=== PATIENT | male | born 1990 | race Caucasian/White ===

== ENCOUNTER 2017-01-15 21:39 | Emergency (ER) | payer OTHER, BC ==
[2017-01-15 21:44] VITALS: BP 141/88; PULSE 84; RESP 18; TEMP 97.9; O2SAT 97
--- NOTE | 2017-01-15 21:52 | EDPHY ---
H & P Time Seen by Provider: 01/15/17 21:45 HPI/ROS: CHIEF COMPLAINT: Laceration left Achilles region HISTORY OF PRESENT ILLNESS: 26-year-old male with up-to-date tetanus sustained accidental laceration to left Achilles region when he accidentally kicked a metal object. No paresthesia. No sensory or motor deficit. No foot drop. PHYSICAL EXAM (Prior to examination, patient consented to physical exam, hands were washed and my usual and customary physical exam procedures followed) 1) GENERAL: Well-developed, well-nourished, alert and oriented. Appears to be in no acute distress. 2) HEAD: Normocephalic 3) HEENT: Pupils equal, round, reactive to light bilaterally. 4) LUNGS: Breathing comfortably. 5) MUSCULOSKELETAL: proximal tibia and fibula nontender .negative Marie test , compartments soft 6) SKIN: left Achilles region transverse 2.5 cm laceration 7) VASCULAR: DP,PT pulses and cap refill present and brisk Smoking Status: Never smoked Constitutional: Initial Vital Signs Temperature (C) 36.6 C 01/15/17 21:42 Heart Rate 84 01/15/17 21:42 Respiratory Rate 18 01/15/17 21:42 Blood Pressure 141/88 H 01/15/17 21:42 O2 Sat (%) 97 01/15/17 21:42 O2 Delivery Mode Room Air Allergies/Adverse Reactions: loracarbef [From Lorabid] Allergy (Verified 01/15/17 21:41) Home Medications: Medication Instructions Recorded Ibuprofen 01/15/17 MDM/Departure - MDM Procedures: Procedure: Laceration repair. I explained the indications, risks and benefits for both laceration repair and anesthetic administration. Verbal consent was obtained from the patient . The laceration on the left Achilles was anesthetized using 0.5% bupivicaine with epinephrine . After anesthetic administered the patient was observed for a period of time and had no apparent adverse effects. The wound was cleaned, prepped, draped in normal sterile fashion and explored to its base. No foreign body seen, no foreign bodies palpated. There were no deep structures involved. No tendon injury was identified. The wound was repaired with 4 simple interrupted 3 0 Prolene suture. The wound repair was simple. The procedure was performed by myself. Patient has been informed that scarring will occur, although efforts have been made to minimize this. ED Course/Re-evaluation: Doubt Achilles injury. - Depart Disposition: Home, Routine, Self-Care Clinical Impression: Laceration of left heel Qualifiers: Encounter type: initial encounter Qualified Code(s): S91.312A - Laceration without foreign body, left foot, initial encounter Condition: Good Instructions: Care For Your Stitches (ED), Laceration (ED) Additional Instructions: Return to the ER if you develop redness, swelling, discharge, warmth to the wound, red streaks going up your leg, or any other symptoms that concern you. Referrals: Return, to the ER in 14 days for suture removal [Other] - As per Instructions
== END 2017-01-15 22:27 | disposition home or self-care (01) ==
PROC: 0HQNXZZ Repair Left Foot Skin, External Approach (ICD-10-PCS; principal; 2017-01-15)
DX: S91.312A Laceration without foreign body, left foot, initial encounter (principal); W22.8XXA Striking against or struck by other objects, initial encounter